=== PATIENT | female | born 1940 | race Caucasian/White ===

== ENCOUNTER → 2016-11-14 | Outpatient (CLI) | payer MEDICARE ==
[~2016-11-14] MED LIST: BACITRACIN15 GM TOPIC; NORCO 5-325 TA1 EACH ORAL; SYNTHROID25 MCG ORAL
[2016-11-14 13:11] LABS: BASOPHILS % (AUTO) 1.2 % (0.0-2.0); EOSINOPHILS % (AUTO) 2.3 % (0.0-3.0); LYMPHOCYTES % (AUTO) 34.2 % (20.0-45.0); MEAN CORPUSCULAR HEMOGLOBIN 29.5 PG (27.0-31.0); MEAN CORPUSCULAR HGB CONC 32.3 G/DL (32.0-36.0); MEAN CORPUSCULAR VOLUME 91 FL (80-99); MEAN PLATELET VOLUME 8.8 FL (6.5-10.1); MONOCYTES % (AUTO) 6.4 % (1.0-10.0); NEUTROPHILS % (AUTO) 55.9 % (45.0-75.0); PLATELET COUNT 289 K/UL (150-450); RED BLOOD COUNT 4.43 M/UL (4.20-5.40); RED CELL DISTRIBUTION WIDTH 12.5 % (11.6-14.8); WHITE BLOOD COUNT 7.5 K/UL (4.8-10.8)
[2016-11-14 13:39] LABS: ALANINE AMINOTRANSFERASE 14 U/L (3-33); ANION GAP 13 (5-15); ASPARTATE AMINO TRANSFERASE 15 U/L (5-40); CALCIUM 9.9 mg/dL (8.6-10.2); CARBON DIOXIDE 28 mEQ/L (20-30); CHLORIDE 99 mEQ/L (98-107); CHOLESTEROL 185 mg/dL (< 200); CHOLESTEROL/HDL RATIO 3.2 (3.3-4.4); CREATININE 0.8 mg/dL (0.5-0.9); HEMOLYSIS 5; LDL CHOLESTEROL (CALC.) 104 mg/dL (60-99); POTASSIUM 4.9 mEQ/L (3.4-4.9); SODIUM 140 mEQ/L (135-145); TOTAL PROTEIN 7.2 g/dL (6.6-8.7)
[2016-11-14 13:50] LABS: THYROID STIMULATING HORMONE 0.441 uIU/mL (0.300-4.500)
--- NOTE | 2016-11-16 11:45 | Diagnostic Imaging Report ---
Indication: COUGH Technique: PA and lateral views of the chest. Findings: Comparison: None Lungs are symmetrically hyperinflated, right greater than left. Small linear densities in both lung bases. Lungs otherwise clear. Aortic arch calcified. Minimal scoliosis, multiple disc marginal osteophytes in thoracic spine. Mild pectus excavatum deformity. The extra pulmonary soft tissues, remainder of the cardiomediastinal silhouette, pulmonary vasculature, and pleural surfaces are unremarkable. IMPRESSION: No evidence of acute cardiopulmonary disease Findings compatible with COPD with pulmonary bibasal subsegmental atelectasis versus scarring Aortosclerosis Degenerative spondylosis and scoliosis Pectus excavatum deformity
== END | disposition home or self-care (01) ==
LOC: LAB 12:01
DX: R10.10 Upper abdominal pain, unspecified (principal); R05 Cough; R53.1 Weakness; I70.0 Atherosclerosis of aorta; M47.9 Spondylosis, unspecified; M41.9 Scoliosis, unspecified
CPT/HCPCS: 36415; 71020; 80053; 80061; 84436; 84443; 84480; 85025

== ENCOUNTER → 2016-11-17 | Outpatient (CLI) | payer MEDICARE ==
--- NOTE | 2016-11-17 15:03 | Diagnostic Imaging Report ---
Indication:Abdominal pain Technique: Grayscale and duplex Doppler imaging of the abdomen performed. Comparison: None Findings: In the left lobe of the liver there is a ovoid hypoechoic lesion measuring 2.8 x 1.4 cm. This is questionable. Further evaluation with contrast CT of the abdomen is recommended for confirmation. The demonstrated part of the pancreas, gallbladder, aorta and IVC, both kidneys, spleen appear unremarkable. Calcification of aorta noted. There is no biliary ductal dilatation identified. Doppler evaluation of the main portal vein shows patency. There is no ascites. No hydronephrosis seen. Impression: Questionable 2.8 CM lesion in the liver. Recommend further evaluation with contrast CT. Atherosclerotic vascular disease
== END | disposition home or self-care (01) ==
LOC: ULS 10:14
DX: R10.9 Unspecified abdominal pain (principal); I25.10 Atherosclerotic heart disease of native coronary artery without angina pectoris
CPT/HCPCS: 76700

== ENCOUNTER → 2016-11-19 | Outpatient (CLI) | payer MEDICARE ==
--- NOTE | 2016-11-21 10:15 | Diagnostic Imaging Report ---
Clinical Indication: Abdominal pain, evaluation of abnormality described on recent ultrasound Technique: Patient given oral contrast. IV administration nonionic contrast. Multiphasic spiral acquisitions obtained through the abdomen. Multiplanar reconstructions were generated. Total dose length product 2195 mGycm. CTDIvol(s) 12, 9, 16, 16, 16, 16 mGy Comparison: Reference made to ultrasound of the abdomen dated 11/17/2016 Findings: Within segment 8 of the liver, corresponding to the abnormality described on recent ultrasound, there is a lesion which measures 2.1 cm long axis dimension. This is hypodense on the arterial phase exam. It demonstrates or focal nodular enhancement on the venous phase exam, near complete filling in on the three-minute delayed exam, and is isoattenuating to liver on the 10 minute delayed exam. No other liver lesions are evident. The gallbladder, bile ducts, are all unremarkable. There are some subcentimeter low-attenuation lesions within the spleen visible only on the venous phase images. The adrenals are unremarkable. The right kidney is unremarkable. Left kidney demonstrates a 1 cm cyst. The included lung bases are clear. There are degenerative changes of the lumbar spine, as well as mild dextroscoliotic deformity. The included enteric structures are unremarkable. Impression: Lesion within segment 8 of the liver, corresponding to the lesion described on recent ultrasound, demonstrates enhancement pattern characteristic of a benign hemangioma No acute or significant abnormality otherwise Incidental findings as noted, including left renal cyst, degenerative lumbar spondylosis and dextroscoliotic deformity The CT scanner at [facility] is accredited by the [employer] and the scans are performed using protocols designed to limit radiation exposure to as low as reasonably achievable to attain images of sufficient resolution adequate for diagnostic evaluation.
== END | disposition home or self-care (01) ==
LOC: CAT 12:11
DX: K76.9 Liver disease, unspecified (principal)
CPT/HCPCS: 74160; Q9967

== ENCOUNTER 2017-06-05 08:28 | Emergency (ER) | payer MEDICARE ==
[~2017-06-05] VITALS: Ht 157.5 cm; Wt 59.0 kg
[2017-06-05 08:47] VITALS: BP 141/84
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
--- NOTE | 2017-06-05 09:56 | Diagnostic Imaging Report ---
Indication: Headache Technique: Contiguous 5 mm thick transaxial imaging of the head obtained in a Siemens Sensation [address] scanner. Soft tissue and bone windows generated. Total Dose length Product (DLP): [address] Dose Index Volume (CTDIvol): 70.38 mGy Comparison: none Findings: There is mild prominence of the ventricles, basal cisterns, and cerebral sulci consistent with atrophy. Mild, nonspecific, white matter hypoattenuation is noted throughout the brain consistent with chronic small vessel disease. There is no midline shift, edema, acute hemorrhage, mass effect, or abnormal extra-axial fluid collections. Bones and extra osseous soft tissues are unremarkable. Impression: No acute intracranial bleed, mass effect or edema. Mild atrophy of the brain. Nonspecific white matter hypoattenuation probably due to chronic small vessel disease. The CT scanner at [facility] is accredited by the [employer] and the scans are performed using dose optimization techniques as appropriate to a performed exam including Automatic Exposure control.
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
--- NOTE | 2017-06-05 10:19 | Diagnostic Imaging Report ---
Indication: Pain Findings: 3 views of the left shoulder were obtained. There is moderate to severe narrowing of the glenohumeral joint with marginal spur formation. There is a ovoid soft tissue calcification just below the glenohumeral joint. This is probably an osteochondroma and is chronic in nature. The bones are osteopenic. There is no acute fracture or malalignment identified. Impression: No acute injury. 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
[2017-06-05] MEDS ORDERED: NORCO 5-325 TA1 EACH ORAL (11:17)
[2017-06-05] MEDS ORDERED: Diltiazem 25mg/5ml IV ONE (11:30)
[2017-06-05 11:35] VITALS: BP 138/81
[2017-06-05 11:36] VITALS: BP 138/81
--- NOTE | 2017-06-05 12:02 | Diagnostic Imaging Report ---
Indication: pain Findings: Single AP view of the pelvis was performed. No acute fracture or malalignment identified. There is moderate loss or arthritis of both hips and degenerative changes of the lower lumbar spine. Bones are osteopenic. There is a ovoid soft tissue ossified focus in the left groin of undetermined etiology. Impression: No acute injury
--- NOTE | 2017-06-08 08:27 | Diagnostic Imaging Report ---
Indications: hip pain Findings: Two views of the left hip were obtained. There is moderate osteoarthritis of the left hip with sclerosis and osteophyte formation. The bones are osteopenic. There is no fracture definitely identified. Ovoid focus of heterotopic ossification noted in the left groin. Impression: No acute injury. Moderate osteophyte is of the hip. Soft tissue ossific focus, nonspecific.
== END 2017-06-05 11:39 | disposition home or self-care (01) ==
LOC: EMR 09:06
DX: S16.1XXA Strain of muscle, fascia and tendon at neck level, initial encounter (principal); Z88.2 Allergy status to sulfonamides; M19.012 Primary osteoarthritis, left shoulder; M25.752 Osteophyte, left hip; M85.88 Other specified disorders of bone density and structure, other site; M47.892 Other spondylosis, cervical region; G31.9 Degenerative disease of nervous system, unspecified; S46.002A Unspecified injury of muscle(s) and tendon(s) of the rotator cuff of left shoulder, initial encounter; V43.52XA Car driver injured in collision with other type car in traffic accident, initial encounter; Y93.9 Activity, unspecified; Y92.410 Unspecified street and highway as the place of occurrence of the external cause
CPT/HCPCS: 70450; 72125; 72170; 73502; 99284

== ENCOUNTER 2017-06-17 15:31 | Emergency (ER) | payer MEDICARE ==
[~2017-06-17] VITALS: Ht 162.6 cm; Wt 63.0 kg
[2017-06-17 15:50] VITALS: BP 103/78
[2017-06-17 16:05] VITALS: BP 103/78
--- NOTE | 2017-06-17 16:11 | Emergency Room Report ---
History of Present Illness General Chief Complaint: General Complaint Source: Patient Present Illness HPI The patient is a 76-year-old female presenting for hypotension. She was at her primary care doctor's office and was seen at her blood pressure was 80/40s and she was walked over to the emergency department. The patient states that she feels fine and states that she does not want to be here. She denies taking any blood pressure medications. She states that she feels fine. She denies dizziness, blurred vision, headache, fatigue, chest pain, shortness of breath Allergies: Coded Allergies: SULFA (SULFONAMIDE ANTIBIOTICS) (Verified Allergy, Hives, 02/05/14) Patient History Past Medical History: see triage record Pertinent Family History: none Reviewed Nursing Documentation: PMH: Agreed, PSxH: Agreed Nursing Documentation-PMH Past Medical History: No Stated History Hx Diabetes: No - hypothyroid Review of Systems All Other Systems: negative except mentioned in HPI Physical Exam Vital Signs Date Time Temp Pulse Resp B/P (MAP) Pulse Ox O2 Delivery O2 Flow Rate FiO2 06/17/17 15:39 98.6 86 16 103/78 96 Room Air Sp02 EP Interpretation: reviewed, normal General Appearance: no apparent distress, alert, GCS 15, non-toxic Head: normocephalic, atraumatic Eyes: bilateral eye normal inspection, bilateral eye PERRL ENT: hearing grossly normal, normal pharynx, no angioedema, normal voice Neck: full range of motion, supple/symm/no masses Respiratory: chest non-tender, lungs clear, normal breath sounds, speaking full sentences Cardiovascular #1: regular rate, rhythm, no edema Musculoskeletal: back normal, gait/station normal, normal range of motion, non- tender Neurologic: alert, oriented x3, responsive, motor strength/tone normal, sensory intact, speech normal Psychiatric: memory normal, no suicidal/homicidal ideation, no delusions, anxious Skin: normal color, no rash, warm/dry, well hydrated Medical Decision Making PA Attestation Dr. Kc is my supervising physician. Patient management was discussed with my supervising physician Diagnostic Impression: Primary Impression: Hypotension ER Course The patient is a 76-year-old female presenting for hypotension Differential diagnoses considered but not limited to: Hypotension, hypovolemia, orthostatic hypotension, reaction, among others The patient is normotensive here The patient eloped less than 40 minutes after checking in. Unable to perform ordered tests. No diagnosis made. Last Vital Signs Date Time Temp Pulse Resp B/P (MAP) Pulse Ox O2 Delivery O2 Flow Rate FiO2 06/17/17 15:39 98.6 86 16 103/78 96 Room Air Status: improved Disposition: ELOPED Condition: Unknown RORY MCALLISTER Jun 17, 2017 16:11
== END 2017-06-17 16:10 | disposition left against medical advice (07) ==
LOC: EMR 16:00
DX: I95.9 Hypotension, unspecified (principal); Z88.2 Allergy status to sulfonamides
CPT/HCPCS: 99281

== ENCOUNTER 2017-06-23 10:12 | Outpatient (CLI) | payer MEDICARE ==
[2017-06-23 10:43] LABS: BASOPHILS % (AUTO) 1.2 % (0.0-2.0); EOSINOPHILS % (AUTO) 2.8 % (0.0-3.0); LYMPHOCYTES % (AUTO) 24.9 % (20.0-45.0); MEAN CORPUSCULAR HEMOGLOBIN 29.8 PG (27.0-31.0); MEAN CORPUSCULAR VOLUME 93 FL (80-99); MEAN PLATELET VOLUME 8.8 FL (6.5-10.1); MONOCYTES % (AUTO) 5.9 % (1.0-10.0); NEUTROPHILS % (AUTO) 65.2 % (45.0-75.0); PLATELET COUNT 265 K/UL (150-450); RED CELL DISTRIBUTION WIDTH 12.3 % (11.6-14.8)
[2017-06-23 10:54] LABS: ANION GAP 11 (5-15); CALCIUM 9.9 mg/dL (8.6-10.2); CARBON DIOXIDE 27 mEQ/L (20-30); CHLORIDE 103 mEQ/L (98-107); CREATININE 0.9 mg/dL (0.5-0.9); HEMOLYSIS 5; POTASSIUM 4.9 mEQ/L (3.4-4.9); SODIUM 141 mEQ/L (135-145)
== END 2017-06-23 12:12 | disposition home or self-care (01) ==
LOC: LAB 10:12
DX: R42 Dizziness and giddiness (principal)
CPT/HCPCS: 36415; 80048; 84443; 85025

== ENCOUNTER 2017-06-30 11:26 | Emergency (ER) | payer MEDICARE ==
[~2017-06-30] VITALS: Ht 157.5 cm; Wt 65.8 kg
--- NOTE | 2017-06-30 14:40 | Diagnostic Imaging Report ---
Indication: Pain 3 views of the right knee were obtained. Findings: No acute fracture, malalignment, or joint effusion are identified. Joint space is relatively well-maintained. Bone mineralization is within normal limits for age. Mild marginal spurs are noted. Impression: Osteoarthritis
--- NOTE | 2017-06-30 14:41 | Diagnostic Imaging Report ---
Indications: hip pain Findings: Two views of the right hip were obtained. No definite fracture is appreciated. There is moderate irregularity of the hip joint which includes the femoral head and acetabula, both sides showing moderate osteophyte formation, and irregular sclerosis. Impression: Moderate osteoarthritis of the right hip. No obvious fracture
--- NOTE | 2017-06-30 14:42 | Diagnostic Imaging Report ---
Indication: Pain Findings: 3 views of the right shoulder were obtained. No acute fractures, malalignment, erosions or periostitis are identified. Bone mineralization is within normal limits. Soft tissues are unremarkable. Moderate marginal spur formation noted in the glenohumeral joint. Impression: Posture arthritis
--- NOTE | 2017-06-30 14:47 | Diagnostic Imaging Report ---
Indication: Pain 3 views of the left knee were obtained. Findings: No acute fracture, malalignment, or joint effusion are identified. Joint space is relatively well-maintained except the lateral compartment which is slightly narrowed. Bone mineralization is within normal limits for age. Impression: No acute injury. Mild osteoarthritis suspected in the lateral compartment.
[2017-06-30 15:13] VITALS: BP 146/108
--- NOTE | 2017-07-03 17:00 | Emergency Room Report ---
History of Present Illness General Chief Complaint: Lower Extremity Injury Present Illness HPI The patient is a 76-year-old female presenting for multiple areas of pain after falling. She states that she was hiking and fell onto her right side 3 days prior. She is now complaining of pain to the right shoulder, Hip, and both knees. Pain is an 8/10 dull ache and does not radiate from these areas. Worse with movement and touch. She states that she tripped and fell. She denies hitting head or loss of consciousness. She denies any other symptoms including nausea, vomiting, dizziness, blurred vision, numbness or tingling, chest pain, shortness of breath Allergies: Coded Allergies: SULFA (SULFONAMIDE ANTIBIOTICS) (Verified Allergy, Hives, 02/05/14) Patient History Past Medical History: see triage record Pertinent Family History: none Reviewed Nursing Documentation: PMH: Agreed, PSxH: Agreed Nursing Documentation-PMH Hx Diabetes: No - hypothyroid Review of Systems All Other Systems: negative except mentioned in HPI Physical Exam Vital Signs Date Time Temp Pulse Resp B/P (MAP) Pulse Ox O2 Delivery O2 Flow Rate FiO2 06/30/17 11:52 98.1 84 20 148/92 99 Room Air Sp02 EP Interpretation: reviewed, normal General Appearance: no apparent distress, alert, GCS 15, non-toxic Head: normocephalic, atraumatic Eyes: bilateral eye normal inspection, bilateral eye PERRL ENT: hearing grossly normal, normal pharynx, no angioedema, normal voice Neck: other - in soft collar Respiratory: chest non-tender, lungs clear, normal breath sounds, speaking full sentences Musculoskeletal: normal inspection, normal range of motion, tender - TTP over the R anterior and lateral deltoid, R lateral hip, and bilat anterior knees Neurologic: alert, oriented x3, responsive, motor strength/tone normal, sensory intact, speech normal Psychiatric: judgement/insight normal, memory normal, mood/affect normal, no suicidal/homicidal ideation Skin: normal color, no rash, warm/dry, well hydrated Lymphatic: no adenopathy Medical Decision Making PA Attestation Dr. Villalta is my supervising physician. Patient management was discussed with my supervising physician Diagnostic Impression: Primary Impression: Osteoarthritis Qualified Codes: M19.90 - Unspecified osteoarthritis, unspecified site Additional Impression: Fall Qualified Codes: W19.XXXA - Unspecified fall, initial encounter ER Course The patient is a 76-year-old female presenting for pain after falling Ddx considered include but not limited to sprain/strain, fracture, contusion Physical exam: No apparent distress There is tenderness of the right shoulder, right hip, and both knees. No obvious deformity. No ecchymosis. No edema. Full active range of motion of all these areas. Imaging reveals signs of arthritis. Otherwise unremarkable. No acute findings The patient was informed of these results and will followup with her primary doctor ER precautions are given Other X-Ray Diagnostic Results Other X-Ray Diagnostic Results #1: X-Ray ordered: L knee # of Views/Limited Vs Complete: 3 View Indication: Pain EP Interpretation: Yes Interpretation: no dislocation, no soft tissue swelling, no fractures Impression: No acute disease Electronically Signed by: MD HOWARD Prescott Scribe Text I am acting as scribe for my supervising physician. My supervising physician's interpretation of the L Knee xrays are there are no fractures, dislocations or soft tissue swelling. Other X-Ray Diagnostic Results #2: X-Ray ordered: R knee # of Views/Limited Vs Complete: 3 View Indication: Pain EP Interpretation: Yes Interpretation: no dislocation, no soft tissue swelling, no fractures Impression: No acute disease Electronically Signed by: MD HOWARD Prescott Scribe Text I am acting as scribe for my supervising physician. My supervising physician's interpretation of the R knee Knee xrays are there are no fractures, dislocations or soft tissue swelling. Other X-Ray Diagnostic Results #3: X-Ray ordered: R hip # of Views/Limited Vs Complete: 2 View Indication: Pain EP Interpretation: Yes Interpretation: no dislocation, no soft tissue swelling, no fractures Impression: No acute disease Electronically Signed by: MD HOWARD Prescott Scribe Text I am acting as scribe for my supervising physician. My supervising physician's interpretation of the R hip xrays are there are no fractures, dislocations or soft tissue swelling. Other X-Ray Diagnostic Results #4: X-Ray ordered: R shoulder # of Views/Limited Vs Complete: 3 View Indication: Pain EP Interpretation: Yes Interpretation: no dislocation, no soft tissue swelling, no fractures Impression: No acute disease Electronically Signed by: Thaddeus LAWRENCE Scribe Text I am acting as scribe for my supervising physician. My supervising physician's interpretation of the R shoulder xrays are there are no fractures, dislocations or soft tissue swelling. Last Vital Signs Date Time Temp Pulse Resp B/P (MAP) Pulse Ox O2 Delivery O2 Flow Rate FiO2 06/30/17 15:13 98.1 78 20 146/108 99 Room Air Status: improved Disposition: HOME, SELF-CARE Condition: Improved Patient Instructions: ALEJANDRO Kingston for Routine Care of Injuries Additional Instructions: I discussed my findings with the patient. All questions and concerns have been answered. Treatment and medication compliance have been addressed. I advised the patient that they need to follow up with PMD in 3-5 days. Return to ED if pain remains or worsens, numbness or tingling occurs, new rash is noticed, fever is noticed, or if needed for any reason. Patient verbalized understanding of discharge instructions. RORY MCALLISTER Jul 03, 2017 17:00
== END 2017-06-30 15:17 | disposition home or self-care (01) ==
LOC: EMR 12:32
DX: M19.011 Primary osteoarthritis, right shoulder (principal); M17.11 Unilateral primary osteoarthritis, right knee; M16.11 Unilateral primary osteoarthritis, right hip; Z88.2 Allergy status to sulfonamides; Z91.81 History of falling
CPT/HCPCS: 99284

== ENCOUNTER 2017-07-01 09:54 | Outpatient (CLI) | payer MEDICARE ==
[2017-07-01 11:33] LABS: BILIRUBIN,DIRECT 0.1 mg/dL (0.1-0.3); TOTAL PROTEIN 7.3 g/dL (6.6-8.7)
[2017-07-01 12:01] LABS: THYROID STIMULATING HORMONE 2.42 uIU/mL (0.300-4.500)
== END 2017-07-01 11:54 | disposition home or self-care (01) ==
LOC: LAB 09:54
DX: E03.9 Hypothyroidism, unspecified (principal); E78.5 Hyperlipidemia, unspecified
CPT/HCPCS: 36415; 80061; 80076; 84436; 84443; 84480

== ENCOUNTER 2017-10-04 07:43 | Emergency (ER) | payer MEDICARE ==
[~2017-10-04] VITALS: Ht 160 cm; Wt 63.5 kg
[2017-10-04 07:44] VITALS: BP 142/78
[2017-10-04] MEDS ORDERED: AMBIEN5 MG ORAL (07:52)
[2017-10-04] MEDS ORDERED: Sodium Chloride 500ML 500 ML IV ONE (07:59)
[2017-10-04 08:00] VITALS: BP 113/69
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
[2017-10-04 08:30] VITALS: BP 128/90
[2017-10-04 08:48] LABS: KETONES,URINE NEGATIVE (NEGATIVE); LEUKOCYTE ESTERASE ,URINE 3+ (NEGATIVE); NITRITE,URINE NEGATIVE (NEGATIVE); PH,URINE 6 (4.5-8.0); PROTEIN,URINE NEGATIVE (NEGATIVE); UROBILINOGEN,URINE NORMAL MG/DL (0.0-1.0)
[2017-10-04 08:51] LABS: APPEARANCE,URINE SLIGHTLY CLOUDY
[2017-10-04 09:04] LABS: EOSINOPHILS % (AUTO) 1.7 % (0.0-3.0); LYMPHOCYTES % (AUTO) 23.8 % (20.0-45.0); MEAN CORPUSCULAR HEMOGLOBIN 30.4 PG (27.0-31.0); MEAN CORPUSCULAR VOLUME 92 FL (80-99); MONOCYTES % (AUTO) 6.3 % (1.0-10.0); NEUTROPHILS % (AUTO) 67.2 % (45.0-75.0); PLATELET COUNT 252 K/UL (150-450); RED BLOOD COUNT 4.44 M/UL (4.20-5.40); RED CELL DISTRIBUTION WIDTH 12.1 % (11.6-14.8); WHITE BLOOD COUNT 7.1 K/UL (4.8-10.8)
[2017-10-04 09:10] LABS: BACTERIA,URINE FEW /HPF; RBC,URINE TNTC /HPF (0 - 2); SQUAMOUS EPITHELIAL CELL,UR MODERATE /LPF (NONE/OCC)
[2017-10-04 09:18] LABS: ANION GAP 8 mmol/L (5-15); CALCIUM 9.6 MG/DL (8.5-10.1); CARBON DIOXIDE 28 MMOL/L (21-32); CHLORIDE 105 MMOL/L (98-107); CREATININE 0.9 MG/DL (0.55-1.30); SODIUM 141 MMOL/L (136-145)
[2017-10-04 09:32] LABS: ALANINE AMINOTRANSFERASE 16 U/L (12-78); ALBUMIN/GLOBULIN RATIO 1.3 (1.0-2.7); ASPARTATE AMINO TRANSFERASE 13 U/L (15-37); CKMB 2.1 NG/ML (0.0-3.6); LIPASE 201 U/L (73-393); TOTAL PROTEIN 7.3 G/DL (6.4-8.2)
[2017-10-04 10:24] VITALS: BP 152/99
--- NOTE | 2017-10-04 10:37 | Diagnostic Imaging Report ---
Indication: Left lower quadrant pain Technique: CT scan of the abdomen and pelvis was performed from the diaphragms to the symphysis pubis with intravenous contrast material only per specific request of the ordering physician.. 5 mm sections were generated. Axial, coronal, and sagittal images are presented. Dose: Total Dose Length Product - DLP [address] Dose Index - CTDIvol(s) 13.68 mGy. Automated exposure control was utilized for dose reduction. Comparison: 11/19/16 Findings: Liver demonstrates a low-density lesion with peripheral puddling enhancement centrally measuring 2.6 cm. This was present previously. The remainder the liver is normal. The spleen is unremarkable. The pancreas is normal. The aorta is normal in caliber. There is calcification in the aorta. The retroperitoneum is free of adenopathy. The kidneys are again normal in size. A low-density lesion is noted measuring approximately 1 cm within the left kidney consistent with a cyst. This is unchanged.. The appendix is normal. The bowel is normal caliber. There is no evidence of bowel obstruction. The bladder is normal. A small amount of fluid is noted to the left of the rectum. This was present previously. Degenerative changes are noted in the spine. Impression: No change from previous study. Left renal cyst Hemangioma centrally within the liver. Small fluid collection adjacent to the uterus on the left. This may be fluid in the cul-de-sac or could represent a paraovarian or paratubal cyst or ovarian cyst. Degenerative change in the spine. No acute abnormality.. The CT scanner at [facility] is accredited by the [employer] and the scans are performed using protocols designed to limit radiation exposure to as low as reasonably achievable to attain images of sufficient resolution adequate for diagnostic evaluation.
[2017-10-04] MEDS ORDERED: Ciprofloxacin 500mg tab ORAL ONE (11:00)
[2017-10-04] MEDS ORDERED: CIPROFLOXACIN500 M2 ORAL (11:18)
[2017-10-04 12:36] VITALS: BP 152/99
--- NOTE | 2017-10-05 19:25 | Cardiology Report ---
APPROVED REPORT EKG Measurement Heart [id number] [id number] Sinus rhythm with premature atrial complexes Septal infarct, age undetermined Abnormal ECG
== END 2017-10-04 12:37 | disposition home or self-care (01) ==
LOC: EMR 08:15
DX: R10.32 Left lower quadrant pain (principal); N39.0 Urinary tract infection, site not specified; N28.1 Cyst of kidney, acquired; D18.09 Hemangioma of other sites; E03.9 Hypothyroidism, unspecified; Z88.2 Allergy status to sulfonamides
CPT/HCPCS: 36415; 74177; 80053; 81003; 82550; 82553; 83690; 84484; 85025; 93005; 96360; 99284; J7040; Q9967